=== PATIENT | female | born 1990 | race American Indian/Alaskan Native ===

== ENCOUNTER 2017-11-04 18:49 | Emergency (ER) | payer MEDICAID ==
[2017-11-04 19:07] VITALS: TEMP 98.7
[2017-11-04 19:51] LABS: URINE BILIRUBIN NEGATIVE (NEGATIVE); URINE BLOOD LARGE (NEGATIVE); URINE GLUCOSE (UA) NEGATIVE (NEGATIVE); URINE LEUKOCYTE ESTERASE NEGATIVE Leu/uL (NEGATIVE); URINE PROTEIN TRACE mg/dL (<30 mg/dL); URINE UROBILINOGEN 0.2 E.U./dL (<1 E.U./dL)
--- NOTE | 2017-11-04 19:54 | ED PDOC ---
Arrival/HPI - General Chief Complaint: Abdominal Pain Time Seen by Provider: 11/04/17 19:23 Historian: Patient - History of Present Illness Narrative History of Present Illness (Text): 11/04/17 19:30 Julianna Sargent is a 27 year old female, who presents to the emergency department complaining of abdominal pain with associated diarrhea for 3 days. Patient notes that she switched to new control pills 2 days ago. Patient denies any frequency, urgency, burning on urination, or any other complaints at this time. Time/Duration: < week Symptom Onset: Gradual Symptom Course: Unchanged Activities at Onset: Light Context: Home Past Medical History - Provider Review Nursing Documentation Reviewed: Yes - Infectious Disease Hx of Infectious Diseases: None - Reproductive Menopause: No - Psychiatric Hx Substance Use: No - Surgical History Hx Orthopedic Surgery: Yes - Anesthesia Hx Anesthesia: Yes Hx Anesthesia Reactions: No Family/Social History - Physician Review Nursing Documentation Reviewed: Yes Family/Social History: No Known Family HX Smoking Status: Unknown If Ever Smoked Hx Alcohol Use: No Hx Substance Use: No Allergies/Home Meds Allergies/Adverse Reactions: Allergies No Known Allergies Allergy (Verified 11/04/17 19:07) Review of Systems - Review of Systems Constitutional: absent: Fevers, Night Sweats Eyes: absent: Vision Changes ENT: absent: Hearing Changes Respiratory: absent: SOB Cardiovascular: absent: Chest Pain Gastrointestinal: Abdominal Pain, Diarrhea Genitourinary Female: absent: Dysuria, Frequency Musculoskeletal: absent: Arthralgias Skin: absent: Rash, Pruritis Neurological: absent: Headache, Dizziness Endocrine: absent: Diaphoresis Hemo/Lymphatic: absent: Adenopathy Psychiatric: absent: Anxiety, Depression Physical Exam Vital Signs Reviewed: Yes Vital Signs Temp Pulse Resp BP Pulse Ox 11/04/17 21:28 74 18 107/67 97 11/04/17 19:04 98.7 F 96 H 16 111/70 100 Temperature: Afebrile Blood Pressure: Normal Pulse: Tachycardic Respiratory Rate: Normal Appearance: Positive for: Well-Appearing, Non-Toxic, Comfortable Pain Distress: None Mental Status: Positive for: Alert and Oriented X 3 - Systems Exam Head: Present: Atraumatic, Normocephalic Pupils: Present: PERRL Extroacular Muscles: Present: EOMI Conjunctiva: Present: Normal Mouth: Present: Moist Mucous Membranes Neck: Present: Normal Range of Motion Respiratory/Chest: Present: Clear to Auscultation, Good Air Exchange. No: Respiratory Distress, Accessory Muscle Use Cardiovascular: Present: Regular Rate and Rhythm, Normal S1, S2. No: Murmurs Abdomen: Present: Tenderness (over suprapubic area) Back: Present: Normal Inspection Upper Extremity: Present: Normal Inspection. No: Cyanosis, Edema Lower Extremity: Present: Normal Inspection. No: Edema Neurological: Present: GCS=15, CN II-XII Intact, Speech Normal Skin: Present: Warm, Dry, Normal Color. No: Rashes Psychiatric: Present: Alert, Oriented x 3, Normal Insight, Normal Concentration Medical Decision Making ED Course and Treatment: 11/04/17 19:55 Impression: 27 year old female complaining of suprapubic abdominal pain with associated diarrhea for 3 days. Plan: -- Urinalysis -- labs -- Rocephin, IV fluids -- Reassess and disposition Progress Notes: 11/04/17 22:07 On re-evaluation, patient feels better and is in no acute distress. I have discussed the results and plan with the patient, who expresses understanding. Patient in agreement with plan to be discharged home. Patient is stable for discharge. Patient was instructed to follow up with physician or return if symptoms worsen or new concerning symptoms arise. - Lab Interpretations Lab Results: 11/04/17 21:19 11/04/17 21:19 Lab Results 11/04/17 21:19: Sodium 142, Potassium 3.7, Chloride 108 H, Carbon Dioxide 25, Anion Gap 14, BUN 11, Creatinine 0.7, Est GFR ( Amer) > 60, Est GFR (Non- Af Amer) > 60, Random Glucose 98, Calcium 9.8, Total Bilirubin 0.4, AST 19, ALT 28, Alkaline Phosphatase 65, Total Protein 7.7, Albumin 4.1, Globulin 3.6, Albumin/Globulin Ratio 1.1 11/04/17 21:19: WBC 5.1, RBC 4.56, Hgb 13.1, Hct 39.7, MCV 87.1, MCH 28.7, MCHC 33.0, RDW 13.4, Plt Count 241, MPV 12.4 H, Gran % 44.0 L, Lymph % (Auto) 47.3 H , [place] % (Auto) 5.7, Eos % (Auto) 2.4, Baso % (Auto) 0.6, Gran # 2.24, Lymph # ( Auto) 2.4, [place] # (Auto) 0.3, Eos # (Auto) 0.1, Baso # (Auto) 0.03 11/04/17 19:30: Urine Color Yellow, Urine Appearance Clear, Urine pH 6.0, Ur Specific [place] >= 1.030, Urine Protein Trace H, Urine Glucose (UA) Negative, Urine Ketones >=80, Urine Blood Large H, Urine Nitrate Negative, Urine Bilirubin Negative, Urine Urobilinogen 0.2, Ur Leukocyte Esterase Negative, Urine RBC 25 - 30, Urine WBC 1 - 3, Ur Epithelial Cells 3 - 4, Urine Bacteria Mod, Urine Other Mucus - Medication Orders Current Medication Orders: Discontinued Medications Sodium Chloride (Sodium Chloride 0.9%) 1,000 mls @ 999 mls/hr IV .Q1H1M STA Stop: 11/04/17 21:06 Last Admin: 11/04/17 20:15 Dose: 999 mls/hr eMAR Start Stop Document 11/04/17 20:15 SF (Rec: 11/04/17 21:14 SF [id number]) Intravenous Solution Start Date 11/04/17 Start Time 20:15 End Date 11/04/17 End time 21:16 Total Infusion Time 61 Ceftriaxone Sodium (Rocephin 1 Gram Ivpb) 1 gm in 100 mls @ 200 mls/hr IVPB STAT STA PRN Reason: Protocol Stop: 11/04/17 21:20 Last Admin: 11/04/17 21:12 Dose: 200 mls/hr eMAR Start Stop Document 11/04/17 21:12 SF (Rec: 11/04/17 21:12 SF [id number]) Intravenous Solution Start Date 11/04/17 Start Time 21:12 End Date 11/04/17 End time 21:42 Total Infusion Time 30 - PA / GAS ENGINE OPERATOR / Resident Statement MD/DO has reviewed & agrees with the documentation as recorded. - Scribe Statement The provider has reviewed the documentation as recorded by the Scribe Patti Stanley Provider Scribe Attestation: All medical record entries made by the Scribe were at my direction and personally dictated by me. I have reviewed the chart and agree that the record accurately reflects my personal performance of the history, physical exam, medical decision making, and the department course for this patient. I have also personally directed, reviewed, and agree with the discharge instructions and disposition. Disposition/Present on Arrival - Present on Arrival Any Indicators Present on Arrival: No History of DVT/PE: No History of Uncontrolled Diabetes: No Urinary Catheter: No History of Decub. Ulcer: No History Surgical Site Infection Following: None - Disposition Have Diagnosis and Disposition been Completed?: Yes Diagnosis: Hemorrhagic cystitis Disposition: HOME/ ROUTINE Disposition Time: 22:00 Patient Plan: Discharge Patient Problems: Current Active Problems Problem Status Onset Hemorrhagic cystitis Acute Condition: GOOD Discharge Instructions (ExitCare): Urinary Tract Infection, Adult (DC), Acute Cystitis (DC) Additional Instructions: Julianna- Drink 5 20 ounce3 bottles of water daily while taking the Keflex. Pyridium will turn your urine bright orange- don't be frightened. It will stain your underwear so wear a pad. It will take the discomfort away while the antibiotic works to cure your infection. Eat as much yogurt as you can to keep from getting a yeast infection or diarrhea from the antibiotic. Robert- Dr. Hugo Becerra Prescriptions: Cephalexin [Keflex] 500 mg PO QID #40 capsule Phenazopyridine [Pyridium] 200 mg PO TID #9 tab Referrals: Omar Izquierdo, [Primary Care Provider] - Follow up with primary Forms: [facility] ([place])
[2017-11-04 20:00] LABS: URINE APPEARANCE CLEAR (CLEAR); URINE COLOR YELLOW (YELLOW)
[2017-11-04] MEDS ORDERED: Sodium Chloride 0.9% 1,000 ML IV STA (20:06)
[2017-11-04 20:20] LABS: URINE BACTERIA MOD (NEG); URINE RBC 25 - 30 /hpf (0-2)
[2017-11-04] MEDS ORDERED: cefTRIAXone 1 gm 1 GM/100 ML BAG IVPB STA (20:51)
[2017-11-04 21:34] LABS: BASO # 0.03 K/mm3 (0.0-2.0); BASO % 0.6 % (0.0-3.0); EOS # 0.1 (0.0-0.7); EOS % 2.4 % (1.5-5.0); GRAN # 2.24 (1.4-6.5); HEMOGLOBIN 13.1 g/dL (12.0-16.0); LYMPH # 2.4 (1.2-3.4); LYMPH % 47.3 % (22.0-35.0); MEAN CELL VOLUME 87.1 fl (80.0-105.0); MEAN CORPUSCULAR HEMOGLOBIN 28.7 pg (25.0-35.0); MEAN PLATELET VOLUME 12.4 fl (7.0-11.0); MONO # 0.3 (0.1-0.6); MONO % 5.7 % (1.0-6.0); RBC 4.56 10^6/uL (3.5-6.1); RED CELL DISTRIBUTION WIDTH 13.4 % (11.5-14.5); WHITE BLOOD COUNT 5.1 10^3/ul (4.5-11.0)
[2017-11-04 21:40] LABS: ALB/GLOB RATIO 1.1 (1.1-1.8); ALBUMIN 4.1 g/dL (3.0-4.8); ALT/SGPT 28 U/L (7-56); AST/SGOT 19 U/L (14-36); BLOOD UREA NITROGEN 11 mg/dL (7-21); CALCIUM 9.8 mg/dL (8.4-10.5); GFR AFRICAN-AMERICAN > 60; GFR NON-AFRICAN AMERICAN > 60
[2017-11-04 22:18] VITALS: BP 111/70; PULSE 68; RESP 17; O2SAT 100
== END 2017-11-04 22:18 | disposition home or self-care (01) ==
LOC: ED 18:49
DX: N30.91 Cystitis, unspecified with hematuria (principal)
CPT/HCPCS: 80053; 81001; 81025; 85025; 87086; 96361; 96365; 99285; J0696; J7040